=== PATIENT | female | born 1950 | race Caucasian/White ===

== ENCOUNTER 2020-04-15 12:19 | Inpatient (IN) | payer MEDICARE, OTHER ==
[2020-04-15] MEDS ORDERED: SODIUM CHLORIDE 0.9% 1,000 ML IV STA (12:37)
[2020-04-15] MEDS ORDERED: SODIUM CHLORIDE 0.9% 500 ML 500 ML IV STA (12:37)
[2020-04-15] MEDS ORDERED: ONDANSETRON 4 MG/2 ML VIAL IVP STA (12:37)
[2020-04-15] MEDS ORDERED: PROMETHAZINE INJ 25 MG in SODIUM CHLORIDE 0.9% 50 ML IVPB STA (12:54)
[2020-04-15] MEDS ORDERED: ACETAMINOPHEN TAB 500 MG TAB PO STA (12:56)
[2020-04-15] MEDS ORDERED: ALBUTEROL HFA INHALER INHALATION STA (13:00)
--- NOTE | 2020-04-15 13:00 | ED ---
Nausea/Vomiting/Diarrhea HPI - General Chief complaint: Nausea/Vomiting/Diarrhea Stated complaint: nausea Time Seen by Provider: 04/15/20 12:20 Source: patient, EMS, RN notes reviewed Mode of arrival: EMS Limitations: no limitations - History of Present Illness Initial comments: This is a 70-year-old female history of hypertension and who states she was diagnosed with covid 19 4 days ago at [facility] in [facility] who states she's had persistent intractable cough and started developing nausea and vomiting with at least 10 episodes of vomiting since early this morning. She does feels weak somewhat lightheaded. No diarrhea reported. She does have white foamy phlegm she was found have a fever upon arrival here she does states she's had fevers chills and sweats. No chest pain no other complaints or modifying factors other she states she's had decreased oral intake recently. MD complaint: nausea, vomiting, other - Related Data Allergies Allergy/AdvReac Type Severity Reaction Status Date / Time Penicillins Allergy Swelling Verified 04/15/20 12:41 Review of Systems ROS Statement: Those systems with pertinent positive or pertinent negative responses have been documented in the HPI. ROS Other: All systems not noted in ROS Statement are negative. Past Medical History Past Medical History: Hypertension, Thyroid Disorder History of Any Multi-Drug Resistant Organisms: None Reported Past Surgical History: No Surgical Hx Reported Past Psychological History: No Psychological Hx Reported Smoking Status: Never smoker Past Alcohol Use History: None Reported Past Drug Use History: None Reported General Exam - General Exam Comments Initial Comments: Is a well-developed well-nourished awake alert oriented 3 female Limitations: no limitations General appearance: alert, in no apparent distress Head exam: Present: atraumatic, normocephalic, normal inspection Eye exam: Present: normal appearance, PERRL, EOMI. Absent: scleral icterus, conjunctival injection, periorbital swelling ENT exam: Present: mucous membranes dry Neck exam: Present: normal inspection, full ROM, other (No stridor JVD or bruits). Absent: tenderness, meningismus, lymphadenopathy Respiratory exam: Present: rhonchi (Bibasilar rhonchi), decreased breath sounds. Absent: respiratory distress, wheezes, rales, stridor Cardiovascular Exam: Present: regular rate, normal rhythm, normal heart sounds. Absent: systolic murmur, diastolic murmur, rubs, gallop, clicks GI/Abdominal exam: Present: soft, normal bowel sounds. Absent: distended, tenderness, guarding, rebound, rigid, bruit, pulsatile mass Extremities exam: Present: normal inspection, full ROM, normal capillary refill. Absent: tenderness, pedal edema, joint swelling, calf tenderness Back exam: Present: normal inspection Neurological exam: Present: alert, oriented X3, CN II-XII intact Psychiatric exam: Present: normal affect, normal mood Skin exam: Present: warm, dry, intact, normal color. Absent: rash Course Vital Signs 04/15/20 04/15/20 12:41 14:34 Temperature 103.2 F H 102.3 F H Pulse Rate 74 72 Respiratory 20 18 Rate Blood Pressure 163/92 141/91 O2 Sat by Pulse 94 L 97 Oximetry Medical Decision Making - Medical Decision Making I did reevaluate patient on several occasions she still has some traces of nausea her breathing somewhat improved after the albuterol treatment. She did demonstrate a fever with chills and sweats cough with shortness of breath and likely bronchospasm. Patient was reported to be covid positive by nasal swab at [facility]'s records are not in her possession at this time that we do have some of the records. Patient will be admitted I did discuss the case with Dr. Duncan - Lab Data Result diagrams: 04/15/20 12:54 04/15/20 12:54 Lab Results 04/15/20 04/15/20 04/15/20 Range/Units 12:54 12:54 12:54 WBC 5.7 (3.8-10.6) k/uL RBC 4.49 (3.80-5.40) m/uL Hgb 13.1 (11.4-16.0) gm/dL Hct 40.2 (34.0-46.0) % MCV 89.6 (80.0-100.0) fL MCH 29.1 (25.0-35.0) pg MCHC 32.5 (31.0-37.0) g/dL RDW 13.0 (11.5-15.5) % Plt Count 167 (150-450) k/uL Neutrophils % 70 % Lymphocytes % 15 % Monocytes % 10 % Eosinophils % 1 % Basophils % 2 % Neutrophils # 4.0 (1.3-7.7) k/uL Lymphocytes # 0.9 L (1.0-4.8) k/uL Monocytes # 0.6 (0-1.0) k/uL Eosinophils # 0.0 (0-0.7) k/uL Basophils # 0.1 (0-0.2) k/uL D-Dimer 0.59 (<0.60) mg/L FEU Sodium 137 (137-145) mmol/L Potassium 3.7 (3.5-5.1) mmol/L Chloride 107 (98-107) mmol/L Carbon Dioxide 24 (22-30) mmol/L Anion Gap 6 mmol/L BUN 13 (7-17) mg/dL Creatinine 0.66 (0.52-1.04) mg/dL Est GFR (CKD-EPI)AfAm >90 (>60 ml/min/1.73 sqM) Est GFR (CKD-EPI)NonAf 90 (>60 ml/min/1.73 sqM) Glucose 97 (74-99) mg/dL Plasma Lactic Acid Cesar (0.7-2.0) mmol/L Calcium 7.8 L (8.4-10.2) mg/dL Magnesium 1.8 (1.6-2.3) mg/dL Total Bilirubin 0.5 (0.2-1.3) mg/dL AST 34 (14-36) U/L ALT 18 (4-34) U/L Alkaline Phosphatase 55 (38-126) U/L C-Reactive Protein 48.1 H (<10.0) mg/L Total Protein 5.6 L (6.3-8.2) g/dL Albumin 3.0 L (3.5-5.0) g/dL Lipase 33 (23-300) U/L 04/15/20 Range/Units 12:54 WBC (3.8-10.6) k/uL RBC (3.80-5.40) m/uL Hgb (11.4-16.0) gm/dL Hct (34.0-46.0) % MCV (80.0-100.0) fL MCH (25.0-35.0) pg MCHC (31.0-37.0) g/dL RDW (11.5-15.5) % Plt Count (150-450) k/uL Neutrophils % % Lymphocytes % % Monocytes % % Eosinophils % % Basophils % % Neutrophils # (1.3-7.7) k/uL Lymphocytes # (1.0-4.8) k/uL Monocytes # (0-1.0) k/uL Eosinophils # (0-0.7) k/uL Basophils # (0-0.2) k/uL D-Dimer (<0.60) mg/L FEU Sodium (137-145) mmol/L Potassium (3.5-5.1) mmol/L Chloride (98-107) mmol/L Carbon Dioxide (22-30) mmol/L Anion Gap mmol/L BUN (7-17) mg/dL Creatinine (0.52-1.04) mg/dL Est GFR (CKD-EPI)AfAm (>60 ml/min/1.73 sqM) Est GFR (CKD-EPI)NonAf (>60 ml/min/1.73 sqM) Glucose (74-99) mg/dL Plasma Lactic Acid Cesar 1.5 (0.7-2.0) mmol/L Calcium (8.4-10.2) mg/dL Magnesium (1.6-2.3) mg/dL Total Bilirubin (0.2-1.3) mg/dL AST (14-36) U/L ALT (4-34) U/L Alkaline Phosphatase (38-126) U/L C-Reactive Protein (<10.0) mg/L Total Protein (6.3-8.2) g/dL Albumin (3.5-5.0) g/dL Lipase (23-300) U/L - EKG Data -: EKG Interpreted by Ut EKG shows normal: sinus rhythm, axis, intervals, QRS complexes, ST-T waves Rate: normal EKG Comments: Sinus rhythm of 73. Interval 134 QRS duration 82 daily since QTC 416/[address]-T wave changes - Radiology Data Radiology results: report reviewed (I did review the imaging and report is evidence of peripheral infiltrates on chest x-ray evidence of enteritis versus ileus on the KUB.), image reviewed Disposition Clinical Impression: Pneumonia, Febrile illness, acute, Intractable vomiting, Ileus Disposition: [facility] Condition: Fair Referrals: Leonor Garg MD [Primary Care Provider] - 1-2 days
[2020-04-15 13:03] LABS: Basophils # (A) 0.1 k/uL (0-0.2); Basophils % (A) 2 %; Eosinophils % (A) 1 %; HCT 40.2 % (34.0-46.0); HGB 13.1 gm/dL (11.4-16.0); Lymphocytes # (A) 0.9 k/uL (1.0-4.8); Lymphocytes % (A) 15 %; MCH 29.1 pg (25.0-35.0); MCHC 32.5 g/dL (31.0-37.0); MCV 89.6 fL (80.0-100.0); Mean Platelet Volume 8.5; Monocytes # (A) 0.6 k/uL (0-1.0); Monocytes % (A) 10 %; Neutrophils % (A) 70 %; Platelet Count 167 k/uL (150-450); RBC 4.49 m/uL (3.80-5.40); WBC 5.7 k/uL (3.8-10.6)
[2020-04-15 13:15] LABS: ALT 18 U/L (4-34); AST 34 U/L (14-36); African American GFR (CKD) >90 (>60 ml/min/1.73 sqM); Alkaline Phosphatase 55 U/L (38-126); Anion Gap 6 mmol/L; Blood Urea Nitrogen 13 mg/dL (7-17); C Reactive Protein 48.1 mg/L (<10.0); Calcium 7.8 mg/dL (8.4-10.2); Carbon Dioxide 24 mmol/L (22-30); Chloride 107 mmol/L (98-107); Glucose 97 mg/dL (74-99); Magnesium 1.8 mg/dL (1.6-2.3); Non-African American GFR(CKD) 90 (>60 ml/min/1.73 sqM); Potassium 3.7 mmol/L (3.5-5.1); Sodium 137 mmol/L (137-145); Total Bilirubin 0.5 mg/dL (0.2-1.3); Total Protein 5.6 g/dL (6.3-8.2)
--- NOTE | 2020-04-15 14:03 | XR ---
EXAMINATION TYPE: XR chest 2V DATE OF EXAM: 04/15/2020 COMPARISON: None INDICATION: Pain fever cough TECHNIQUE: Frontal and lateral views of the chest are obtained. FINDINGS: The heart size is normal. The pulmonary vasculature is normal. There are patchy infiltrates within the bilateral mid and lower lung field periphery. Infectious etio logy should be considered such as pneumonia. Consider atypical pneumonia.. IMPRESSION: 1. Patchy peripheral infiltrates. Consider atypical pneumonia within the differential. Follow-up is r ecommended.
--- NOTE | 2020-04-15 14:56 | XR ---
EXAMINATION TYPE: XR KUB portable DATE OF EXAM: 04/15/2020 COMPARISON: NONE HISTORY: 70-year-old female with pain FINDINGS: Supine imaging limited for assessment of free air. Patchy opacities in the visualized lower lungs. Th e air distended small bowel loop in the left mid abdomen without abnormal dilatation. Scattered colon ic air is also present. No significant stool burden. Bowel content largely obscures the renal shadows. Degenerated levoconvex curvature lower lumbar spine. IMPRESSION: Mildly prominent small bowel loop left midabdomen could represent a regional ileus or enteritis. No e vidence for bowel obstruction. Patchy infiltrates in the lungs redemonstrated.
[2020-04-15] MEDS ORDERED: cefTRIAXone IN SWFI 1,000 MG/10 ML SYRINGE IVP STA (15:15)
[2020-04-15] MEDS ORDERED: PNEUMONIA PROTOCOL UTILIZED 1 EACH MISC PO PRN (15:16)
[2020-04-15] MEDS ORDERED: AZITHROMYCIN 500 MG in SODIUM CHLORIDE 0.9% 250 ML IVPB STA (15:16)
[2020-04-15] MEDS ORDERED: ALBUTEROL NEBULIZED 2.5 MG/3 ML INHALATION PRN (15:16)
--- NOTE | 2020-04-15 15:20 | ED ---
Medical Decision Making - Lab Data Result diagrams: 04/15/20 12:54 04/15/20 12:54 Lab Results 04/15/20 04/15/20 04/15/20 Range/Units 12:54 12:54 12:54 WBC 5.7 (3.8-10.6) k/uL RBC 4.49 (3.80-5.40) m/uL Hgb 13.1 (11.4-16.0) gm/dL Hct 40.2 (34.0-46.0) % MCV 89.6 (80.0-100.0) fL MCH 29.1 (25.0-35.0) pg MCHC 32.5 (31.0-37.0) g/dL RDW 13.0 (11.5-15.5) % Plt Count 167 (150-450) k/uL Neutrophils % 70 % Lymphocytes % 15 % Monocytes % 10 % Eosinophils % 1 % Basophils % 2 % Neutrophils # 4.0 (1.3-7.7) k/uL Lymphocytes # 0.9 L (1.0-4.8) k/uL Monocytes # 0.6 (0-1.0) k/uL Eosinophils # 0.0 (0-0.7) k/uL Basophils # 0.1 (0-0.2) k/uL D-Dimer 0.59 (<0.60) mg/L FEU Sodium 137 (137-145) mmol/L Potassium 3.7 (3.5-5.1) mmol/L Chloride 107 (98-107) mmol/L Carbon Dioxide 24 (22-30) mmol/L Anion Gap 6 mmol/L BUN 13 (7-17) mg/dL Creatinine 0.66 (0.52-1.04) mg/dL Est GFR (CKD-EPI)AfAm >90 (>60 ml/min/1.73 sqM) Est GFR (CKD-EPI)NonAf 90 (>60 ml/min/1.73 sqM) Glucose 97 (74-99) mg/dL Plasma Lactic Acid Cesar (0.7-2.0) mmol/L Calcium 7.8 L (8.4-10.2) mg/dL Magnesium 1.8 (1.6-2.3) mg/dL Total Bilirubin 0.5 (0.2-1.3) mg/dL AST 34 (14-36) U/L ALT 18 (4-34) U/L Alkaline Phosphatase 55 (38-126) U/L C-Reactive Protein 48.1 H (<10.0) mg/L Total Protein 5.6 L (6.3-8.2) g/dL Albumin 3.0 L (3.5-5.0) g/dL Lipase 33 (23-300) U/L 04/15/ Range/Units 12:54 WBC (3.8-10.6) k/uL RBC (3.80-5.40) m/uL Hgb (11.4-16.0) gm/dL Hct (34.0-46.0) % MCV (80.0-100.0) fL MCH (25.0-35.0) pg MCHC (31.0-37.0) g/dL RDW (11.5-15.5) % Plt Count (150-450) k/uL Neutrophils % % Lymphocytes % % Monocytes % % Eosinophils % % Basophils % % Neutrophils # (1.3-7.7) k/uL Lymphocytes # (1.0-4.8) k/uL Monocytes # (0-1.0) k/uL Eosinophils # (0-0.7) k/uL Basophils # (0-0.2) k/uL D-Dimer (<0.60) mg/L FEU Sodium (137-145) mmol/L Potassium (3.5-5.1) mmol/L Chloride (98-107) mmol/L Carbon Dioxide (22-30) mmol/L Anion Gap mmol/L BUN (7-17) mg/dL Creatinine (0.52-1.04) mg/dL Est GFR (CKD-EPI)AfAm (>60 ml/min/1.73 sqM) Est GFR (CKD-EPI)NonAf (>60 ml/min/1.73 sqM) Glucose (74-99) mg/dL Plasma Lactic Acid Cesar 1.5 (0.7-2.0) mmol/L Calcium (8.4-10.2) mg/dL Magnesium (1.6-2.3) mg/dL Total Bilirubin (0.2-1.3) mg/dL AST (14-36) U/L ALT (4-34) U/L Alkaline Phosphatase (38-126) U/L C-Reactive Protein (<10.0) mg/L Total Protein (6.3-8.2) g/dL Albumin (3.5-5.0) g/dL Lipase (23-300) U/L Disposition Clinical Impression: Pneumonia, Febrile illness, acute, Intractable vomiting, Ileus, Bronchospasm, acute Disposition: ADMITTED IP TO THIS HOSP Condition: Fair Referrals: Leonor Garg MD [Primary Care Provider] - 1-2 days
[2020-04-15] MEDS ORDERED: ONDANSETRON 4 MG/2 ML VIAL IVP PRN (17:20)
--- NOTE | 2020-04-15 17:30 | P.HPIM ---
History of Present Illness H&P Date: 04/15/20 Chief Complaint: Nausea and vomiting This is a 7-year-old female with past medical history significant for essential hypertension who presented to the hospital with nausea and vomiting. Patient said that 2 weeks ago she went and got tested for Covid-[address] care af ter being exposed to a positive patient. A week after she got report from the urgent care that her test was positive. Patient reported that she was feeling fairly well until 2 or 3 days ago when she started having worsening nausea and poor by mouth intake. Last night she said that she vomited so many times and was unable to keep anything down all day. She denies any abdominal pain. No diarrhea. No blood in her vomit. No fevers or chills. No cough. No chest pain. Patient said that she was getting short of breath only after she vomited so many times. She is currently comfortable. She decided to come to the emergency room for evaluation. In the ER, she was found to have a high-grade fever. Lab work was mostly within acceptable range. Chest x-ray showed multilobar pneumonia. Patient is currently admitted to the hospital for further management. There is no evidence of hypoxia otherwise. No other family members ill or diagnosed with Covid Review of Systems Review of system: 14 points review of systems were obtained and were negative except to what were mentioned in the HPI. Past Medical History Past Medical History: Hypertension, Thyroid Disorder History of Any Multi-Drug Resistant Organisms: None Reported Past Surgical History: No Surgical Hx Reported Past Psychological History: No Psychological Hx Reported Smoking Status: Never smoker Past Alcohol Use History: None Reported Past Drug Use History: None Reported Medications and Allergies Allergies Allergy/AdvReac Type Severity Reaction Status Date / Time Penicillins Allergy Swelling Verified 04/15/20 12:41 Physical Exam Vitals: Vital Signs Temp Pulse Resp BP Pulse Ox 04/15/20 16:18 98.6 F 66 18 116/79 97 04/15/20 14:34 102.3 F H 72 18 141/91 97 04/15/20 12:41 103.2 F H 74 20 163/92 94 L Intake and Output 04/15/20 04/15/20 04/15/20 06:59 14:59 22:59 Other: Weight 79.832 kg General: The patient is awake and alert, in no distress Eye: there is normal conjunctiva bilaterally. Neck: The neck is supple, there is no JVD. Cardiovascular: Normal S1-S2, no S3-S4, no murmurs. Respiratory: Lungs clear to auscultation bilaterally Gastrointestinal: Abdomen is soft, nontender Musculoskeletal: There is no pedal edema. Neurological:. Speech is normal. Skin: Skin is warm and dry Results CBC & Chem 7: 04/15/20 12:54 04/15/20 12:54 Labs: Abnormal Lab Results - Last 24 Hours (Table) 04/15/20 04/15/20 Range/Units 12:54 12:54 Lymphocytes # 0.9 L (1.0-4.8) k/uL Calcium 7.8 L (8.4-10.2) mg/dL C-Reactive Protein 48.1 H (<10.0) mg/L Total Protein 5.6 L (6.3-8.2) g/dL Albumin 3.0 L (3.5-5.0) g/dL Assessment and Plan Assessment: 1. Suspected ileus with no evidence of small bowel obstruction on abdominal x- ray. Abdominal exam is benign. Continue nothing by mouth for now. Repeat abdominal x-ray in the morning. 2. COVID-19 positive test 2 weeks ago at an outside urgent care per patient report. Repeat test in the ER done and pending. D-dimer normal. CRP slightly elevated. 3. A typical pneumonia: With multiple patchy infiltrate noted on chest x-ray. The patient denies any shortness of breath or cough. May be secondary to COVID versus bacterial infection. Continue antibiotic with ceftriaxone and azithromycin. Consult infectious disease for further evaluation. 4. High-grade fever on presentation of 103.2: No other SIRS criteria. Blood culture sent and pending 5. DVT prophylaxis with subcu heparin Today, I reviewed her medication list and lab work results. Continue IV fluid hydration with normal saline at 1:30 mL per hour. Zofran as needed for nausea. Wean off O2 as tolerated for O2 sats greater than 90%. Repeat lab work in the morning. Continue supportive care.
[2020-04-15] MEDS: SODIUM CHLORIDE 0.9% 1,000 ML IV SCH ×3 (18:22→23:39)
[2020-04-15] MEDS: HEPARIN SODIUM,PORCINE 5,000 UNIT/ML 1 ML VIAL SQ SCH (23:38)
[2020-04-16] MEDS: ACETAMINOPHEN TAB 325 MG TAB PO PRN ×2 (08:26→20:02)
[2020-04-16] MEDS: PANTOPRAZOLE 40 MG/10 ML VIAL IVP SCH (08:26)
[2020-04-16] MEDS: HEPARIN SODIUM,PORCINE 5,000 UNIT/ML 1 ML VIAL SQ SCH ×2 (08:26→15:03)
--- NOTE | 2020-04-16 12:00 | XR ---
EXAMINATION TYPE: XR abdomen 1V DATE OF EXAM: 04/16/2020 COMPARISON: 04/15/2020 INDICATION: Nausea TECHNIQUE: Single view abdomen supine view FINDINGS: There is a nonspecific bowel gas pattern present. There is within the colon. Some scattered small bow el air appears to be present. Previous dilated small bowel loops are not evident. Psoas margins are normal. No organomegaly is present. IMPRESSION: 1. Nonspecific bowel gas pattern. Prominence of air-filled small bowel loops are diminishing over the interval.
--- NOTE | 2020-04-16 12:01 | XR ---
EXAMINATION TYPE: XR chest 1V portable DATE OF EXAM: 04/16/2020 COMPARISON: Prior chest x-ray dated 04/15/2020 HISTORY: Cough TECHNIQUE: Single frontal view of the chest is obtained. FINDINGS: Lung volumes are low and the patient is rotated, technique is apical lordotic. Heart size is stable. Patchy density persists within the lungs. No evident pneumothorax or pleural effusion. Bon es are stable. Interstitium is increased. IMPRESSION: Findings are similar to prior exam. Difficult to exclude acute pneumonia superimposed on chronic interstitial disease.
[2020-04-16 13:09] LABS: Basophils % (A) 1 %; Eosinophils # (A) 0.1 k/uL (0-0.7); Eosinophils % (A) 1 %; HCT 37.7 % (34.0-46.0); HGB 12.1 gm/dL (11.4-16.0); Lymphocytes # (A) 1.2 k/uL (1.0-4.8); Lymphocytes % (A) 23 %; MCH 29.6 pg (25.0-35.0); MCHC 32.1 g/dL (31.0-37.0); MCV 92.2 fL (80.0-100.0); Mean Platelet Volume 8.6; Monocytes # (A) 0.5 k/uL (0-1.0); Monocytes % (A) 9 %; Neutrophils # (A) 3.4 k/uL (1.3-7.7); Neutrophils % (A) 63 %; Platelet Count 177 k/uL (150-450); RBC 4.09 m/uL (3.80-5.40); RDW 13.2 % (11.5-15.5); WBC 5.5 k/uL (3.8-10.6)
[2020-04-16 13:14] LABS: African American GFR (CKD) >90 (>60 ml/min/1.73 sqM); Anion Gap 6 mmol/L; Blood Urea Nitrogen 12 mg/dL (7-17); Calcium 7.4 mg/dL (8.4-10.2); Carbon Dioxide 23 mmol/L (22-30); Chloride 110 mmol/L (98-107); Glucose 80 mg/dL (74-99); Non-African American GFR(CKD) >90 (>60 ml/min/1.73 sqM); Potassium 3.5 mmol/L (3.5-5.1); Sodium 139 mmol/L (137-145)
[2020-04-16] MEDS: LEVOFLOXACIN 750 MG TAB PO SCH (15:03)
[2020-04-16] MEDS: SODIUM CHLORIDE 0.9% 1,000 ML IV SCH (15:03)
[2020-04-16] MEDS ORDERED: AZITHROMYCIN 500 MG TAB PO SCH (16:00)
--- NOTE | 2020-04-16 17:04 | P.PN ---
Subjective Progress Note Date: 04/16/20 Patient is doing a lot better today. Nausea resolved. She was started on clear liquid diet with no difficulty. She denies any abdominal pain. Objective - Vital Signs Vital signs: Vital Signs Temp 99.7 F H 04/16/20 14:59 Pulse 105 H 04/16/20 14:59 Resp 16 04/16/20 14:59 BP 138/81 04/16/20 14:59 Pulse Ox 94 L 04/16/20 14:59 Intake & Output 04/15/20 04/16/20 04/16/20 18:59 06:59 18:59 Intake Total 1959 Balance 1959 Weight 79.832 kg Intake: Intake, IV Titration 1760 Amount Sodium Chloride 0.9% 1, 1760 000 ml @ 130 mls/hr IV . [id number] [facility] Rx#:[id number] Oral 200 Other: # Voids 3 3 - Exam General: The patient is awake and alert, in no distress Eye: there is normal conjunctiva bilaterally. Neck: The neck is supple, there is no JVD. Cardiovascular: Normal S1-S2, no S3-S4, no murmurs. Respiratory: Lungs clear to auscultation bilaterally Gastrointestinal: Abdomen is soft, nontender Musculoskeletal: There is no pedal edema. Neurological:. Speech is normal. Skin: Skin is warm and dry - Labs CBC & Chem 7: 04/16/20 12:31 04/16/20 12:31 Labs: Abnormal Lab Results - Last 24 Hours (Table) 04/15/20 04/16/20 Range/Units 17:24 12:31 Chloride 110 H (98-107) mmol/L Calcium 7.4 L (8.4-10.2) mg/dL Procalcitonin 0.14 H (0.02-0.09) ng/mL Microbiology - Last 24 Hours (Table) 04/15/20 12:54 Blood Culture - Preliminary Blood No Growth after 24 hours Assessment and Plan Assessment: This is a 70-year-old female with past medical history noted below who was diagnosed with COVID-19 2 weeks ago at an outside urgent care and was doing fairly well up until couple of days ago when she started having nausea and vomiting and presented to our emergency room for further evaluation. She is currently admitted to the hospital for further management of her medical problems noted below. 1. Suspected ileus with no evidence of small bowel obstruction on abdominal x- ray. Abdominal exam is benign. Improved significantly with conservative management. Repeat x-ray on 04/16 showed improvement. Patient is able to tolerate clear liquid with no difficulty. Advance diet as tolerated. 2. COVID-19 positive test 2 weeks ago at an outside urgent care per patient report. Repeat test in the ER done and pending. D-dimer normal. CRP slightly elevated. 3. A typical pneumonia: With multiple patchy infiltrate noted on chest x-ray. The patient denies any shortness of breath or cough. May be secondary to COVID versus bacterial infection. Continue antibiotic with ceftriaxone and azithromycin. Consulted infectious disease for further evaluation. 4. High-grade fever on presentation of 103.2: No other SIRS criteria. Blood culture negative to date 5. DVT prophylaxis with subcu heparin Today, I reviewed her medication list and lab work results. Zofran as needed for nausea. Wean off O2 as tolerated for O2 sats greater than 90%. Repeat lab work in the morning. Continue supportive care. Anticipate discharge home within the next day or 2
[2020-04-16] MEDS: ALBUTEROL HFA INHALER INHALATION PRN (21:16)
--- NOTE | 2020-04-16 22:41 | P.CONS ---
History of Present Illness - Reason for Consult Consult date: 04/16/20 Covid 19 pneumonia Requesting physician: Kulwinder Osborne - Chief Complaint Vomiting x 3 days - History of Present Illness Patient is 70-year-old female with past medical history significant for hypertension apparently get exposed to a patient with covid 19 patient did went to urgent care and apparently the patient got tested for it which came back positive patient was doing okay until 2-3 days ago when the patient having intractable vomiting patient said she was unable to keep anything by mouth and has been throwing up multiple times the patient denies having any abdominal pain. Denies having any diarrhea or any constipation. Denies having any chest pain patient when she was short of breath from all the vomiting that she was having but no significant cough or sputum production with the symptoms the patient presented to [facility] ER the patient was evaluated by the ER physician on arrival to the ER the patient did have a fever of 103F the patient was tachycardic patient did have a normal white count did have mild lymphopenia though it has resolved as of this morning, patient d-dimer was normal lactic acid was normal CRP was mildly elevated 48.1 however Percocet was also elevated 0.14 and the patient did have normal liver enzymes, patient did have a chest x- ray did show patchy peripheral infiltrates correlate for atypical pneumonia within the differential chest x-ray this morning which is finding a similar prior exam patient did have nasal pharyngeal swab which is currently pending patient has been started on Rocephin and azithromycin facility was consulted for further management of antibiotic therapy Review of Systems Positive point has been mentioned in the HPI rest of the systems are negative Past Medical History Past Medical History: Hypertension, Thyroid Disorder History of Any Multi-Drug Resistant Organisms: None Reported Past Surgical History: No Surgical Hx Reported Past Anesthesia/Blood Transfusion Reactions: No Reported Reaction Past Psychological History: No Psychological Hx Reported Smoking Status: Never smoker Past Alcohol Use History: None Reported Past Drug Use History: None Reported - Past Family History Father Family Medical History: No Reported History Medications and Allergies Home Medications Medication Instructions Recorded Confirmed Type Cetirizine HCl 10 mg PO BID 04/15/20 04/15/20 History Famotidine 20 mg PO BID 04/15/20 04/15/20 History Levothyroxine Sodium [Synthroid] 125 mg PO QAM 04/15/20 04/15/20 History NIFEdipine [NIFEdipine ER] 30 mg PO DAILY 04/15/20 04/15/20 History Tolterodine ER [Detrol LA] 4 mg PO DAILY 04/15/20 04/15/20 History Venlafaxine HCl [Effexor XR] 150 mg PO DAILY 04/15/20 04/15/20 History diphenhydrAMINE [Benadryl] 50 mg PO Q6H PRN 04/15/20 04/15/20 History methylPREDNISolone Dose Pack See Taper PO DAILY 04/15/20 04/15/20 History [Medrol Dose Pack] traZODone HCL [TraZODone HCl] 50 - 100 mg PO HS PRN 04/15/20 04/15/20 History Carvedilol [Coreg] 6.25 mg PO BID 04/16/20 04/16/20 History EPINEPHrine (Auto Inject) [Epipen] 0.3 mg IM ONCE PRN 04/16/20 04/16/20 History Montelukast Sodium [Singulair] 10 mg PO HS 04/16/20 04/16/20 History Allergies Allergy/AdvReac Type Severity Reaction Status Date / Time almond Allergy Anaphylaxis Verified 04/16/20 12:10 lisinopril Allergy Anaphylaxis Verified 04/16/20 12:10 Penicillins Allergy Swelling Verified 04/16/20 12:10 Physical Exam Vitals: Vital Signs Temp Pulse Pulse Resp BP BP Pulse Ox 04/16/20 10:21 94 L 04/16/20 10:20 99.3 F 86 L 04/16/20 07:00 102.0 F H 111 H 18 145/90 90 L 04/15/20 23:00 97.8 F 75 17 133/71 97 04/15/20 19:55 99.9 F H 69 18 136/86 99 04/15/20 18:14 16 04/15/20 16:55 98.4 F 68 18 134/86 98 04/15/20 16:18 98.6 F 66 18 116/79 97 04/15/20 14:34 102.3 F H 72 18 141/91 97 04/15/20 12:41 103.2 F H 74 20 163/92 94 L Intake and Output 04/15/20 04/16/20 04/16/20 22:59 06:59 14:59 Intake Total 460 1500 Balance 460 1500 Intake: Intake, IV Titration 260 1500 Amount Sodium Chloride 0.9% 1, 260 1500 000 ml @ 130 mls/hr IV . Q7H42M [facility] Rx#:[id number] Oral 200 0 Other: # Voids 1 3 Weight 79.832 kg GENERAL DESCRIPTION: An elderly female lying in bed, no distress. No tachypnea or accessory muscle of respiration use. HEENT: Shows Pallor , no scleral icterus. Oral mucous membrane is dry. No pharyngeal erythema or thrush NECK: Trachea central, no thyromegaly. LUNGS: Unlabored breathing. Decreased present at the base. No wheeze or crackle. HEART: S1, S2, regular rate and rhythm. No loud murmur ABDOMEN: Soft, no tenderness , guarding or rigidity, no organomegaly EXTREMITIES: No edema of feet. SKIN: No rash, no masses palpable. NEUROLOGICAL: The patient is awake, alert, oriented x3, mood and affect normal. Results CBC & Chem 7: 04/16/20 12:31 04/16/20 12:31 Labs: Abnormal Lab Results - Last 24 Hours (Table) 04/15/20 04/15/20 04/15/20 Range/Units 12:54 12:54 17:24 Lymphocytes # 0.9 L (1.0-4.8) k/uL Calcium 7.8 L (8.4-10.2) mg/dL C-Reactive Protein 48.1 H (<10.0) mg/L Total Protein 5.6 L (6.3-8.2) g/dL Albumin 3.0 L (3.5-5.0) g/dL Procalcitonin 0.14 H (0.02-0.09) ng/mL Assessment and Plan Assessment: 1-patient presented to the hospital with intractable vomiting unable to keep anything down and around to the the patient was noticed to be febrile and tachycardic chest x-ray with multifocal infiltrate however the patient did have a normal white count mild lymphopenia the subsequent resolved d-dimer is negative liver enzymes are normal did have elevated CRP however procalcitonin is also elevated with a question of possible atypical bacterial pneumonia underlying viral pneumonia is not entirely excluded (1) Febrile illness, acute Current Visit: Yes Status: Acute Code(s): R50.9 - FEVER, UNSPECIFIED SNOMED Code(s): 936305131 (2) Pneumonia Current Visit: Yes Status: Acute Code(s): J18.9 - PNEUMONIA, UNSPECIFIED ORGANISM SNOMED Code(s): 033696496 Plan: 1- we will wait for the repeat nasopharyngeal swab for covid 19 2-check urine for Legionella antigen 3- continue with Rocephin however switch Zithromax to Levaquin We will follow on clinical condition and cultures to further adjust medication if needed Thank you for this consultation will follow this patient with you Time with Patient: Greater than 30
[2020-04-16] MEDS: DEXAMETHASONE SOD PHOSPHATE 10 MG/ML 1 ML VIAL PO SCH (23:54)
[2020-04-16] MEDS: ENOXAPARIN 40 MG/0.4 ML SYRINGE SQ SCH (23:54)
[2020-04-16] MEDS ORDERED: DEXAMETHASONE SOD PHOSPHATE 10 MG/ML 1 ML VIAL IV ONE (23:54)
--- NOTE | 2020-04-17 07:43 | XR ---
EXAMINATION TYPE: XR chest 1V portable DATE OF EXAM: 04/17/2020 CLINICAL HISTORY: Pneumonia TECHNIQUE: Upright portable view of the chest obtained COMPARISON: 04/16/2020 FINDINGS: Low lung volumes. Lordotic positioning. Interstitial coarsening. Patchy densities are incr eased versus 04/16/2020 comparison. Cardiac mediastinal silhouette unchanged. Small bilateral pleural effusions. No pneumothorax. IMPRESSION: Increased patchy airspace opacities versus 04/16/2020, and small bilateral pleural effusio ns.
[2020-04-17 08:19] LABS: Basophils % (A) 0 %; Eosinophils % (A) 0 %; HCT 40.2 % (34.0-46.0); HGB 13.1 gm/dL (11.4-16.0); Lymphocytes # (A) 0.5 k/uL (1.0-4.8); Lymphocytes % (A) 13 %; MCH 29.4 pg (25.0-35.0); MCHC 32.6 g/dL (31.0-37.0); MCV 90.4 fL (80.0-100.0); Mean Platelet Volume 8.4; Monocytes # (A) 0.1 k/uL (0-1.0); Monocytes % (A) 3 %; Neutrophils # (A) 3.3 k/uL (1.3-7.7); Neutrophils % (A) 81 %; Platelet Count 185 k/uL (150-450); RBC 4.44 m/uL (3.80-5.40); WBC 4.1 k/uL (3.8-10.6)
[2020-04-17 08:20] LABS: ALT 24 U/L (4-34); AST 42 U/L (14-36); African American GFR (CKD) >90 (>60 ml/min/1.73 sqM); Albumin 2.8 g/dL (3.5-5.0); Alkaline Phosphatase 52 U/L (38-126); Anion Gap 6 mmol/L; Blood Urea Nitrogen 10 mg/dL (7-17); Carbon Dioxide 25 mmol/L (22-30); Chloride 107 mmol/L (98-107); Glucose 142 mg/dL (74-99); LDH 1004 U/L (313-618); Non-African American GFR(CKD) >90 (>60 ml/min/1.73 sqM); Potassium 3.6 mmol/L (3.5-5.1); Sodium 138 mmol/L (137-145); Total Bilirubin 0.5 mg/dL (0.2-1.3); Total Protein 5.6 g/dL (6.3-8.2)
[2020-04-17] MEDS: ENOXAPARIN 40 MG/0.4 ML SYRINGE SQ SCH (08:21)
[2020-04-17] MEDS ORDERED: DEXAMETHASONE SOD PHOSPHATE 10 MG/ML 1 ML VIAL IV ONE (08:21)
[2020-04-17] MEDS: DEXAMETHASONE SOD PHOSPHATE 10 MG/ML 1 ML VIAL PO SCH (08:21)
[2020-04-17] MEDS: PANTOPRAZOLE 40 MG/10 ML VIAL IVP SCH (08:21)
[2020-04-17] MEDS: ZINC SULFATE 220 MG CAP PO SCH (08:22)
[2020-04-17 08:44] LABS: C Reactive Protein 60.1 mg/L (<10.0)
[2020-04-17] MEDS: ALBUTEROL HFA INHALER INHALATION PRN ×2 (09:30→20:48)
[2020-04-17] MEDS: LEVOFLOXACIN 750 MG TAB PO SCH (13:59)
--- NOTE | 2020-04-17 14:30 | P.PN ---
Subjective Progress Note Date: 04/17/20 Patient is doing well today. Her nausea and vomiting resolved. She is tolerating diet with no difficulty. She denies any shortness of breath or cough. Chest x-ray is worse compared to yesterday. She is still hypoxic with O2 sat dropping to 85% on room air. Objective - Vital Signs Vital signs: Vital Signs Temp 98.1 F 04/17/20 07:00 Pulse 69 04/17/20 07:00 Resp 16 04/17/20 07:00 BP 157/97 04/17/20 07:00 Pulse Ox 94 L 04/17/20 07:00 Intake & Output 04/16/20 04/17/20 04/17/20 18:59 06:59 18:59 Intake Total 80 200 Output Total 100 400 Balance -100 -320 200 Intake: Intake, IV Titration 80 Amount Sodium Chloride 0.9% 1, 80 000 ml @ 130 mls/hr IV . Q7H42M [facility] Rx#:[id number] Oral 200 Output: Urine 400 Emesis 100 Other: Voiding Method Toilet # Voids 3 1 - Exam General: The patient is awake and alert, in no distress Eye: there is normal conjunctiva bilaterally. Neck: The neck is supple, there is no JVD. Cardiovascular: Normal S1-S2, no S3-S4, no murmurs. Respiratory: Lungs clear to auscultation bilaterally Gastrointestinal: Abdomen is soft, nontender Musculoskeletal: There is no pedal edema. Neurological:. Speech is normal. Skin: Skin is warm and dry - Labs CBC & Chem 7: 04/17/20 07:39 04/17/20 07:39 Labs: Abnormal Lab Results - Last 24 Hours (Table) 04/15/20 04/17/20 04/17/20 Range/Units 18:00 07:39 07:39 Lymphocytes # 0.5 L (1.0-4.8) k/uL Glucose 142 H (74-99) mg/dL Calcium 8.0 L (8.4-10.2) mg/dL AST 42 H (14-36) U/L Lactate Dehydrogenase 1004 H (313-618) U/L C-Reactive Protein 60.1 H (<10.0) mg/L Total Protein 5.6 L (6.3-8.2) g/dL Albumin 2.8 L (3.5-5.0) g/dL Coronavirus (PCR) Detected H (Not Detected) Microbiology - Last 24 Hours (Table) 04/15/20 12:54 Blood Culture - Preliminary Blood No Growth after 24 hours Assessment and Plan Assessment: This is a 70-year-old female with past medical history noted below who was diagnosed with COVID-19 2 weeks ago at an outside urgent care and was doing fairly well up until couple of days ago when she started having nausea and vomiting and presented to our emergency room for further evaluation. She is currently admitted to the hospital for further management of her medical problems noted below. 1. Suspected ileus/enteritis with no evidence of small bowel obstruction on abdominal x-ray. Abdominal exam is benign. Improved significantly with conservative management. Repeat x-ray on 04/16 showed improvement. Patient is able to tolerate diet with no difficulty 2. COVID-19 positive test 2 weeks ago at an outside urgent care per patient report. Repeat test in the ER done and also positive. D-dimer normal. CRP slightly elevated. 3. A typical pneumonia: With multiple patchy infiltrate noted on chest x-ray. The patient denies any shortness of breath or cough. Probably secondary to COVID versus bacterial infection. Started on antibiotic with ceftriaxone and azithromycin. Consulted infectious disease for further evaluation. Switch antibiotic to Levaquin 4. High-grade fever on presentation of 103.2: No other SIRS criteria. Blood culture negative to date 5. Acute hypoxic respiratory failure on 2 L of oxygen by nasal cannula 6. DVT prophylaxis with subcu heparin Today, I reviewed her medication list and lab work results. I will consult pulmonology to be on the case with concerns about worsening chest x-ray. Pat ient appeared stable clinically. Wean off O2 as tolerated for O2 sats greater than 90%. Repeat lab work in the morning. Continue supportive care.
--- NOTE | 2020-04-17 14:35 | P.CNPUL ---
History of Present Illness Consult date: 04/17/20 Reason for consult: pneumonia Chief complaint: Nausea, vomiting, and diarrhea. History of present illness: This is a 70-year-old female with history of hypothyroidism, hypertension, patient was recently exposed to someone with covid 19 at her [facility]. Patient presented to the hospital on 04/15/20, and she had basically multiple complaints including nausea, vomiting, diarrhea, and intermittent episodes of fever, and re cently she developed some cough and some shortness of breath. Her diagnosis was made 4 days prior to admission at [facility], however considering her symptoms are becoming worse, patient presented to the ER on 04/15/20, chest x-ray showed evidence of bilateral peripheral pneumonia a baseline, her repeat PCR came back positive for covid 19 patient was admitted placed on Decadron, she is also on Levaquin and Rocephin, her pro calcitonin is elevated. Patient was seen by infectious disease on consultation. However since her O2 requirement has been increasing steadily, she is now on 3 L nasal cannula with oxygen saturation in the range of 94%, this consult was initiated. Again patient has a multiple constitutional symptoms including fever, sweats, nausea vomiting, minimal diarrhea, cough, shortness of breath, headaches, denies any chest pain, denies any loss of taste or smell. She also had complaints of vague aches and pains and weakness Review of Systems Constitutional: Fever chills or aches and pains no weight loss. HEENT: Negative Pulmonary: Cough and shortness of breath GI: Nausea vomiting and minimal diarrhea. Cardiac: Negative neUrologic: Mostly headaches Genitourinary: Negative Hematologic: Negative Psychiatric: Negative Musculoskeletal: Mostly aches and pains Skin: Negative Endocrine: History of hypothyroidism denies any heat or cold intolerance. Past Medical History Past Medical History: Hypertension, Thyroid Disorder History of Any Multi-Drug Resistant Organisms: None Reported Past Surgical History: No Surgical Hx Reported Past Anesthesia/Blood Transfusion Reactions: No Reported Reaction Past Psychological History: No Psychological Hx Reported Smoking Status: Never smoker Past Alcohol Use History: None Reported Past Drug Use History: None Reported - Past Family History Father Family Medical History: No Reported History Medications and Allergies Home Medications Medication Instructions Recorded Confirmed Type Cetirizine HCl 10 mg PO BID 04/15/20 04/15/20 History Famotidine 20 mg PO BID 04/15/20 04/15/20 History Levothyroxine Sodium [Synthroid] 125 mg PO QAM 04/15/20 04/15/20 History NIFEdipine [NIFEdipine ER] 30 mg PO DAILY 04/15/20 04/15/20 History Tolterodine ER [Detrol LA] 4 mg PO DAILY 04/15/20 04/15/20 History Venlafaxine HCl [Effexor XR] 150 mg PO DAILY 04/15/20 04/15/20 History diphenhydrAMINE [Benadryl] 50 mg PO Q6H PRN 04/15/20 04/15/20 History methylPREDNISolone Dose Pack See Taper PO DAILY 04/15/20 04/15/20 History [Medrol Dose Pack] traZODone HCL [TraZODone HCl] 50 - 100 mg PO HS PRN 04/15/20 04/15/20 History Carvedilol [Coreg] 6.25 mg PO BID 04/16/20 04/16/20 History EPINEPHrine (Auto Inject) [Epipen] 0.3 mg IM ONCE PRN 04/16/20 04/16/20 History Montelukast Sodium [Singulair] 10 mg PO HS 04/16/20 04/16/20 History Allergies Allergy/AdvReac Type Severity Reaction Status Date / Time almond Allergy Anaphylaxis Verified 04/16/20 12:10 lisinopril Allergy Anaphylaxis Verified 04/16/20 12:10 Penicillins Allergy Swelling Verified 04/16/20 12:10 Physical Exam Vitals: Vital Signs Temp Pulse Resp BP Pulse Ox 04/17/20 07:00 98.1 F 69 16 157/97 94 L 04/17/20 04:00 17 04/16/20 23:55 99.6 F 74 17 164/85 94 L 04/16/20 20:45 99.5 F 04/16/20 19:30 103.0 F H 74 18 153/96 95 04/16/20 14:59 99.7 F H 105 H 16 138/81 94 L Intake and Output 04/16/20 04/17/20 04/17/20 22:59 06:59 14:59 Intake Total 80 200 Output Total 100 400 Balance -100 -320 200 Intake: Intake, IV Titration 80 Amount Sodium Chloride 0.9% 1, 80 000 ml @ 130 mls/hr IV . Q7H42M [facility] Rx#:[id number] Oral 200 Output: Urine 400 Emesis 100 Other: Voiding Method Toilet # Voids 1 1 Physical Exam: Revealed 70-year-old female in no distress. Head: Atraumatic, normocephalic. HEENT:[Neck is supple.] [No neck masses.] [No thyromegaly.] [No JVD.] Chest: [Symmetrical chest expansion, crackles at the bases bilaterally.] Cardiac Exam: [Normal S1 and S2, no S3 gallop, no murmur.] Abdomen: [Soft, nontender, no megaly, no rebound, no guarding, normal bowel sounds.] Extremities: [No clubbing, no edema, no cyanosis.] Neurological Exam: [No focal neurologic deficit.] Alert and oriented 3. Psychiatric: Normal mood, affect and normal mental status examination. Skin: No rashes. Musculoskeletal: No deformities and no limitation in range of motion Results - Laboratory Findings CBC and BMP: 04/17/20 07:39 04/17/20 07:39 PT/INR, D-dimer D-Dimer 0.59 mg/L FEU (<0.60) 04/15/20 12:54 Abnormal lab findings: Abnormal Labs 04/15/20 04/15/20 04/15/20 12:54 12:54 17:24 Lymphocytes # 0.9 L Chloride Glucose Calcium 7.8 L AST Lactate Dehydrogenase C-Reactive Protein 48.1 H Total Protein 5.6 L Albumin 3.0 L Procalcitonin 0.14 H Coronavirus (PCR) 04/15/20 04/16/20 04/17/20 18:00 12:31 07:39 Lymphocytes # 0.5 L Chloride 110 H Glucose Calcium 7.4 L AST Lactate Dehydrogenase C-Reactive Protein Total Protein Albumin Procalcitonin Coronavirus (PCR) Detected H 04/17/20 07:39 Lymphocytes # Chloride Glucose 142 H Calcium 8.0 L AST 42 H Lactate Dehydrogenase 1004 H C-Reactive Protein 60.1 H Total Protein 5.6 L Albumin 2.8 L Procalcitonin Coronavirus (PCR) - Diagnostic Findings Chest x-ray: image reviewed (As noted in HPI.) Assessment and Plan Assessment: Impression: Acute hypoxic respiratory failure secondary to covid 19 pneumonitis. With significant increase in inflammatory markers for covid 19 pneumonitis History of hypothyroidism. History of hypertension. Elevated pro calcitonin, underlying bacterial pneumonia is not entirely ruled out. Recommendation: Continue Decadron. Continue Protonix. Continue zinc. Continue Lovenox, dose may have to be adjusted based on the next d-dimer level. Titrate oxygen to keep O2 saturation above 90%. Continue to monitor inflammatory markers. Will follow. Time with Patient: Greater than 30
--- NOTE | 2020-04-17 18:11 | PN ---
PROGRESS NOTE DATE OF SERVICE: 04/17/2020 REASON FOR FOLLOWUP: Fever and pneumonia. INTERVAL HISTORY: The patient is currently afebrile. The patient is breathing more comfortably. The patient denies having any chest pain or shortness of breath. Minimal dry cough. No nausea, no vomiting. No abdominal pain or diarrhea. Feeling better compared to yesterday. PHYSICAL EXAMINATION: Blood pressure 185/100 with a pulse of 79, temperature 97.3. She is 95% on 2 L nasal cannula. General description is an elderly female up in the bed in no distress. RESPIRATORY SYSTEM: Unlabored breathing. A few fine crackles at the base bilaterally. No wheeze. HEART: S1, S2. Regular rate and rhythm. ABDOMEN: Soft. No tenderness. LABS/IMAGING: Hemoglobin 13.3, white count 4.1. D-dimer 0.43. ALT normalized. CRP 60.1. Procalcitonin is 0.14. Chest x-ray: increased patchy airspace opacity. DIAGNOSTIC IMPRESSION AND PLAN: Patient admitted to hospital with a fever with concern for possible COVID-19 pneumonia. However, that has been diagnosed 2 weeks ago and is out of the window for remdisivir, patient is currently being treated with Lovenox, Decadron and zinc and seems to have shown clinical improvement; to continue along with empiric Levaquin, as the patient's procalcitonin was elevated. Continue with supportive care. MMODL / IJN: [id number] / MTDJessica
[2020-04-17] MEDS: ACETAMINOPHEN TAB 325 MG TAB PO PRN (22:10)
[2020-04-17] MEDS ORDERED: hydrALAZINE HCL 25 MG TAB PO ONE (22:30)
[2020-04-17] MEDS: carvediloL 6.25 MG TAB PO SCH (22:37)
[2020-04-17] MEDS: NIFEdipine XL 30 MG TAB.ER.24 PO SCH (23:06)
[2020-04-18] MEDS ORDERED: hydrALAZINE HCL 25 MG TAB PO STA (02:53)
[2020-04-18] MEDS: ALBUTEROL HFA INHALER INHALATION PRN (07:44)
[2020-04-18 08:52] LABS: Basophils % (A) 0 %; Eosinophils % (A) 0 %; HCT 42.8 % (34.0-46.0); Lymphocytes # (A) 1.1 k/uL (1.0-4.8); Lymphocytes % (A) 10 %; MCH 29.6 pg (25.0-35.0); MCHC 32.8 g/dL (31.0-37.0); MCV 90.4 fL (80.0-100.0); Mean Platelet Volume 9.2; Monocytes # (A) 0.7 k/uL (0-1.0); Monocytes % (A) 6 %; Neutrophils # (A) 9.1 k/uL (1.3-7.7); Neutrophils % (A) 81 %; Platelet Count 242 k/uL (150-450); RBC 4.73 m/uL (3.80-5.40); WBC 11.3 k/uL (3.8-10.6)
[2020-04-18 08:58] LABS: African American GFR (CKD) >90 (>60 ml/min/1.73 sqM); Anion Gap 8 mmol/L; Blood Urea Nitrogen 18 mg/dL (7-17); Calcium 8.6 mg/dL (8.4-10.2); Carbon Dioxide 24 mmol/L (22-30); Chloride 107 mmol/L (98-107); Glucose 131 mg/dL (74-99); Non-African American GFR(CKD) 89 (>60 ml/min/1.73 sqM); Potassium 3.9 mmol/L (3.5-5.1); Sodium 139 mmol/L (137-145)
[2020-04-18] MEDS: PANTOPRAZOLE 40 MG TABLET PO SCH (08:59)
[2020-04-18] MEDS: NIFEdipine XL 30 MG TAB.ER.24 PO SCH (08:59)
[2020-04-18] MEDS: LEVOFLOXACIN 750 MG TAB PO SCH (08:59)
[2020-04-18] MEDS: ZINC SULFATE 220 MG CAP PO SCH (08:59)
[2020-04-18] MEDS: ENOXAPARIN 40 MG/0.4 ML SYRINGE SQ SCH (08:59)
[2020-04-18] MEDS: carvediloL 6.25 MG TAB PO SCH ×2 (08:59→17:21)
[2020-04-18] MEDS: DEXAMETHASONE SOD PHOSPHATE 10 MG/ML 1 ML VIAL PO SCH (09:00)
[2020-04-18] MEDS ORDERED: DEXAMETHASONE SOD PHOSPHATE 10 MG/ML 1 ML VIAL IV ONE (09:00)
--- NOTE | 2020-04-18 11:45 | P.PN ---
Subjective Progress Note Date: 04/18/20 Principal diagnosis: CoVID 19 pneumonitis This is a 70-year-old female with history of hypothyroidism, hypertension, patient was recently exposed to someone with covid 19 at her [employer]. Patient presented to the hospital on 04/15/20, and she had basically multiple complaints including nausea, vomiting, diarrhea, and intermittent episodes of fever, and recently she developed some cough and some shortness of breath. Her diagnosis was made 4 days prior to admission at [facility], however considering her symptoms are becoming worse, patient presented to the ER on 04/15/20, chest x-ray showed evidence of bilateral peripheral pneumonia a baseline, her repeat PCR came back positive for covid 19 patient was admitted placed on Decadron, she is also on Levaquin and Rocephin, her pro calcitonin is elevated. Patient was seen by infectious disease on consultation. However since her O2 requirement has been increasing steadily, she is now on 3 L nasal cannula with oxygen saturation in the range of 94%, this consult was initiated. Again patient has a multiple constitutional symptoms including fever, sweats, nausea vomiting, minimal diarrhea, cough, shortness of breath, headaches, denies any chest pain, denies any loss of taste or smell. She also had complaints of vague aches and pains and weakness. The patient is seen today 04/18/2020 in follow-up on the regular medical floor. She is currently resting comfortably in bed. Awake and alert in no acute distress. Breathing easier today as compared to yesterday. No significant nausea vomiting or diarrhea. Tolerating her diet. Blood culture reveals no growth to date. White count 11.3. Hemoglobin 14.0. Sodium 139. Potassium 3.9. Creatinine 0.69. Glucose 131. LDH 87. C-reactive protein 31. She daniel ins on Decadron 6 mg daily, Lovenox, zinc, Protonix and Levaquin. Objective - Vital Signs Vital signs: Vital Signs Temp 97.6 F 04/18/20 07:00 Pulse 72 04/18/20 07:00 Resp 17 04/18/20 07:00 BP 126/70 04/18/20 07:00 Pulse Ox 94 L 04/18/20 07:00 Intake & Output 04/17/20 04/18/20 04/18/20 18:59 06:59 18:59 Intake Total 200 580 Balance 200 580 Intake: Oral 200 580 Other: Voiding Method Toilet Toilet # Voids 2 2 - Exam GENERAL EXAM: Alert, very pleasant 75-year-old female patient, on 2 L nasal cannula with O2 saturation 94%, comfortable in no apparent distress. HEAD: Normocephalic. EYES: Normal reaction of pupils, equal size. NOSE: Clear with pink turbinates. THROAT: No erythema or exudates. NECK: No masses, no JVD. CHEST: No chest wall deformity. LUNGS: Equal air entry with few basilar crackles. CVS: S1 and S2 normal with no audible murmur, regular rhythm. ABDOMEN: No hepatosplenomegaly, normal bowel sounds, no guarding or rigidity. SPINE: No scoliosis or deformity SKIN: No rashes CENTRAL NERVOUS SYSTEM: No focal deficits, tone is normal in all 4 extremities. EXTREMITIES: There is no peripheral edema. No clubbing, no cyanosis. Peripheral pulses are intact. - Labs CBC & Chem 7: 04/18/20 07:53 04/18/20 07:53 Labs: Abnormal Lab Results - Last 24 Hours (Table) 04/18/20 04/18/20 04/18/20 Range/Units 07:53 07:53 07:53 WBC 11.3 H (3.8-10.6) k/uL Neutrophils # 9.1 H (1.3-7.7) k/uL BUN 18 H (7-17) mg/dL Glucose 131 H (74-99) mg/dL Lactate Dehydrogenase 811 H (313-618) U/L C-Reactive Protein 31.0 H (<10.0) mg/L Microbiology - Last 24 Hours (Table) 04/15/20 12:54 Blood Culture - Preliminary Blood No Growth after 48 hours Assessment and Plan Assessment: Acute hypoxic respiratory failure secondary to CoVID 19 pneumonitis Increased inflammatory markers secondary to above Hypothyroidism Hypertension Plan: The patient was seen and evaluated by Dr. Ross Inflammatory markers improving Remains on Decadron, zinc, Protonix, Lovenox, Levaquin Titrate down the FiO2 as tolerated Follow-up chest x-ray in a.m. We'll continue to follow I, the cosigning physician, performed a history & physical examination of the patient. Lungs sounds with basilar crackles. Maintaining good O2 saturations in the 90s on 2 L/m per nasal cannula. I discussed the assessment and plan of care with my nurse practitioner, Hina Little. I attest to the above note as dictated by her.
[2020-04-18] MEDS: VENLAFAXINE HCL ER 150 MG CAP PO SCH (15:08)
[2020-04-18] MEDS: LEVOTHYROXINE 125 MCG TAB PO SCH (15:08)
--- NOTE | 2020-04-18 16:52 | P.PN ---
Subjective Progress Note Date: 04/18/20 Patient is doing well today. Denies any shortness of breath, nausea, or vomiting. Objective - Vital Signs Vital signs: Vital Signs Temp 97.8 F 04/18/20 15:00 Pulse 74 04/18/20 15:00 Resp 16 04/18/20 15:00 BP 135/89 04/18/20 15:00 Pulse Ox 93 L 04/18/20 15:00 Intake & Output 04/17/20 04/18/20 04/18/20 18:59 06:59 18:59 Intake Total 200 580 Balance 200 580 Intake: Oral 200 580 Other: Voiding Method Toilet Toilet # Voids 2 2 - Exam General: The patient is awake and alert, in no distress Eye: there is normal conjunctiva bilaterally. Neck: The neck is supple, there is no JVD. Cardiovascular: Normal S1-S2, no S3-S4, no murmurs. Respiratory: Lungs clear to auscultation bilaterally Gastrointestinal: Abdomen is soft, nontender Musculoskeletal: There is no pedal edema. Neurological:. Speech is normal. Skin: Skin is warm and dry - Labs CBC & Chem 7: 04/18/20 07:53 04/18/20 07:53 Labs: Abnormal Lab Results - Last 24 Hours (Table) 04/18/20 04/18/20 04/18/20 Range/Units 07:53 07:53 07:53 WBC 11.3 H (3.8-10.6) k/uL Neutrophils # 9.1 H (1.3-7.7) k/uL BUN 18 H (7-17) mg/dL Glucose 131 H (74-99) mg/dL Lactate Dehydrogenase 811 H (313-618) U/L C-Reactive Protein 31.0 H (<10.0) mg/L Microbiology - Last 24 Hours (Table) 04/15/20 12:54 Blood Culture - Preliminary Blood No Growth after 72 hours Assessment and Plan Assessment: This is a 70-year-old female with past medical history noted below who was diagnosed with COVID-19 2 weeks ago at an outside urgent care and was doing fairly well up until couple of days ago when she started having nausea and vomiting and presented to our emergency room for further evaluation. She is currently admitted to the hospital for further management of her medical problems noted below. 1. Suspected ileus/enteritis with no evidence of small bowel obstruction on abdominal x-ray. Abdominal exam is benign. Improved significantly with conservative management. Repeat x-ray on 04/16 showed improvement. Patient is able to tolerate diet with no difficulty 2. COVID-19 positive test 2 weeks ago at an outside urgent care per patient report. Repeat test in the ER done and also positive. D-dimer normal. CRP slightly elevated. 3. A typical pneumonia: With multiple patchy infiltrate noted on chest x-ray. The patient denies any shortness of breath or cough. Probably secondary to COVID versus bacterial infection. Started on antibiotic with ceftriaxone and azithromycin. Now switched to Levaquin. Consulted infectious disease and pulmonology for further evaluation. 4. High-grade fever on presentation of 103.2: No other SIRS criteria. Blood culture negative to date 5. Acute hypoxic respiratory failure on 2 L of oxygen by nasal cannula. Wean off O2 as tolerated for O2 sat greater than 90%. 6. DVT prophylaxis with subcu heparin Today, I reviewed her medication list and lab work results. Appreciate real estate consultant's recommendations. Repeat x-ray in the morning.. Wean off O2 as tolerated for O2 sats greater than 90%. Repeat lab work in the morning. Continue supportive care. May require home oxygen. Anticipate discharge home tomorrow.
--- NOTE | 2020-04-18 16:59 | PN ---
PROGRESS NOTE DATE OF SERVICE: 04/18/2020 REASON FOR FOLLOWUP: Pneumonia. INTERVAL HISTORY: Patient is currently afebrile. The patient overall is feeling much better. The patient is breathing comfortably. The patient denies having any chest pain. Very minimal cough. No nausea, no vomiting. No abdominal pain or any diarrhea. PHYSICAL EXAMINATION: Blood pressure 126/70 with a pulse of 72, temperature 97.3. She is 94% on 1 L nasal cannula. General description is an elderly female, up in the chair in no distress. RESPIRATORY SYSTEM: Unlabored breathing, diffuse breath sounds at the base. HEART: S1, S2. Regular rate and rhythm. ABDOMEN: Soft, no tenderness. LABS: Hemoglobin is 14.3, white count 11.3, BUN of 18, creatinine 0.69. LDH is down to 811. CRP is down to 31. Urine for Legionella antigen is negative. No chest x-ray this morning. DIAGNOSTIC IMPRESSION AND PLAN: 1. Patient admitted to hospital with fever. This patient has been diagnosed with acute COVID-19 pneumonia about 2 weeks ago. The patient seemed to have shown overall clinical improvement on current therapy, which will be continued in the form of Levaquin, zinc, Lovenox and dexamethasone.. 2. If the patient has been off oxygen, may be able to go home on oral therapy to finish. Continue supportive care. MMODL / IJN: [id number] /
[2020-04-19] MEDS: LEVOTHYROXINE 125 MCG TAB PO SCH (06:10)
--- NOTE | 2020-04-19 07:39 | XR ---
EXAMINATION TYPE: XR chest 1V portable DATE OF EXAM: 04/19/2020 COMPARISON: Prior chest x-ray 04/17/2020 HISTORY: Covid pneumonia TECHNIQUE: Single frontal view of the chest is obtained. FINDINGS: There are interstitial densities present bilaterally. Lung volumes are improved. Some brent pheral patchy density persists. No evident pneumothorax or pleural effusion. Cardiomediastinal silhou ette, pulmonary vascularity and balbir not significantly changed. IMPRESSION: Improved aeration
[2020-04-19 07:45] VITALS: RESP 20
[2020-04-19] MEDS: ENOXAPARIN 40 MG/0.4 ML SYRINGE SQ SCH (08:03)
[2020-04-19] MEDS: NIFEdipine XL 30 MG TAB.ER.24 PO SCH (08:03)
[2020-04-19] MEDS: carvediloL 6.25 MG TAB PO SCH (08:03)
[2020-04-19] MEDS: VENLAFAXINE HCL ER 150 MG CAP PO SCH (08:03)
[2020-04-19] MEDS: PANTOPRAZOLE 40 MG TABLET PO SCH (08:03)
[2020-04-19] MEDS: ZINC SULFATE 220 MG CAP PO SCH (08:03)
[2020-04-19] MEDS: DEXAMETHASONE SOD PHOSPHATE 10 MG/ML 1 ML VIAL PO SCH (08:04)
[2020-04-19 08:21] VITALS: BP 147/87; PULSE 68; TEMP 99
--- NOTE | 2020-04-19 11:31 | P.PN ---
Subjective Progress Note Date: 04/19/20 Principal diagnosis: CoVID 19 pneumonitis This is a 70-year-old female with history of hypothyroidism, hypertension, patient was recently exposed to [facility] with covid [facility]. Patient presented to the hospital on 04/15/20, and she had basically multiple complaints including nausea, vomiting, diarrhea, and intermittent episodes of fever, and recently she developed some cough and some shortness of breath. Her diagnosis was made 4 days prior to admission at [facility], however considering her symptoms are becoming worse, patient presented to the ER on 04/15/20, chest x-ray showed evidence of bilateral peripheral pneumonia a baseline, her repeat PCR came back positive for covid 19 patient was admitted placed on Decadron, she is also on Levaquin and Rocephin, her pro calcitonin is elevated. Patient was seen by infectious disease on consultation. However since her O2 requirement has been increasing steadily, she is now on 3 L nasal cannula with oxygen saturation in the range of 94%, this consult was initiated. Again patient has a multiple constitutional symptoms including fever, sweats, nausea vomiting, minimal diarrhea, cough, shortness of breath, headaches, denies any chest pain, denies any loss of taste or smell. She also had complaints of vague aches and pains and weakness. The patient is seen today 04/18/2020 in follow-up on the regular medical floor. She is currently resting comfortably in bed. Awake and alert in no acute distress. Breathing easier today as compared to yesterday. No significant nausea vomiting or diarrhea. Tolerating her diet. Blood culture reveals no growth to date. White count 11.3. Hemoglobin 14.0. Sodium 139. Potassium 3.9. Creatinine 0.69. Glucose 131. LDH 87. C-reactive protein 31. She daniel ins on Decadron 6 mg daily, Lovenox, zinc, Protonix and Levaquin. The patient is seen today 04/19/2020 in follow-up on the regular medical floor. She remains awake and alert in no acute distress. No shortness of breath, cough or congestion. No fever, chills or night sweats. Chest x-ray shows improved aeration. Maintaining O2 saturation in low 90s on room air. Blood culture reveals no growth. Objective - Vital Signs Vital signs: Vital Signs Temp 99.0 F 04/19/20 07:00 Pulse 68 04/19/20 07:00 Resp 20 04/19/20 07:30 BP 147/87 04/19/20 07:00 Pulse Ox 93 L 04/19/20 07:00 Intake & Output 04/18/20 04/19/20 04/19/20 18:59 06:59 18:59 Intake Total 580 200 Balance 580 200 Intake: Oral 580 200 Other: Voiding Method Toilet Toilet Toilet # Voids 2 - Exam GENERAL EXAM: Alert, very pleasant 75-year-old female patient, on room air with O2 saturation 93%, comfortable in no apparent distress. HEAD: Normocephalic. EYES: Normal reaction of pupils, equal size. NOSE: Clear with pink turbinates. THROAT: No erythema or exudates. NECK: No masses, no JVD. CHEST: No chest wall deformity. LUNGS: Equal air entry with few basilar crackles. CVS: S1 and S2 normal with no audible murmur, regular rhythm. ABDOMEN: No hepatosplenomegaly, normal bowel sounds, no guarding or rigidity. SPINE: No scoliosis or deformity SKIN: No rashes CENTRAL NERVOUS SYSTEM: No focal deficits, tone is normal in all 4 extremities. EXTREMITIES: There is no peripheral edema. No clubbing, no cyanosis. Peripheral pulses are intact. - Labs CBC & Chem 7: 04/18/20 07:53 04/18/20 07:53 Labs: Microbiology - Last 24 Hours (Table) 04/15/20 12:54 Blood Culture - Preliminary Blood No Growth after 72 hours Assessment and Plan Assessment: Acute hypoxic respiratory failure secondary to CoVID 19 pneumonitis Increased inflammatory markers secondary to above Hypothyroidism Hypertension Plan: The patient was seen and evaluated by Dr. Ross Cleared for discharge from the pulmonary standpoint To remain in self quarantine Follow-up Covid test with her PCP in 10-14 days I, the cosigning physician, performed a history & physical examination of the patient. Lungs sounds with basilar crackles. Maintaining good O2 saturations in the 90s on room air. I discussed the assessment and plan of care with my nurse practitioner, Hina Little. I attest to the above note as dictated by her.
[2020-04-19] MEDS: LEVOFLOXACIN 750 MG TAB PO SCH (11:52)
[2020-04-19 12:52] LABS: Basophils # (A) 0.1 k/uL (0-0.2); Basophils % (A) 1 %; Eosinophils % (A) 1 %; HCT 37.3 % (34.0-46.0); HGB 12.5 gm/dL (11.4-16.0); Lymphocytes # (A) 1.6 k/uL (1.0-4.8); Lymphocytes % (A) 19 %; MCH 29.7 pg (25.0-35.0); MCHC 33.6 g/dL (31.0-37.0); MCV 88.4 fL (80.0-100.0); Mean Platelet Volume 8.5; Monocytes # (A) 0.7 k/uL (0-1.0); Monocytes % (A) 9 %; Neutrophils # (A) 5.7 k/uL (1.3-7.7); Neutrophils % (A) 68 %; Platelet Count 232 k/uL (150-450); RBC 4.22 m/uL (3.80-5.40); WBC 8.4 k/uL (3.8-10.6)
[2020-04-19 12:54] LABS: ALT 49 U/L (4-34); AST 86 U/L (14-36); African American GFR (CKD) >90 (>60 ml/min/1.73 sqM); Albumin 2.8 g/dL (3.5-5.0); Alkaline Phosphatase 61 U/L (38-126); Anion Gap 5 mmol/L; Blood Urea Nitrogen 15 mg/dL (7-17); Calcium 7.8 mg/dL (8.4-10.2); Carbon Dioxide 27 mmol/L (22-30); Chloride 104 mmol/L (98-107); Glucose 83 mg/dL (74-99); Non-African American GFR(CKD) >90 (>60 ml/min/1.73 sqM); Potassium 2.9 mmol/L (3.5-5.1); Sodium 136 mmol/L (137-145); Total Bilirubin 0.6 mg/dL (0.2-1.3); Total Protein 5.5 g/dL (6.3-8.2)
[2020-04-19] MEDS ORDERED: POTASSIUM CHLORIDE ER 20 MEQ TAB.ER PO STA (13:47)
--- NOTE | 2020-04-19 13:58 | P.DS ---
Providers Date of admission: 04/15/20 15:17 Expected date of discharge: 04/19/20 Attending physician: Giovana Hopkins DO Consults: 04/15/20 17:23 Consult Physician Routine Consulting Provider: Bethanie Sorensen Consult Reason/Comments: covid Do you want consulting provider notified?: Yes 04/17/20 12:59 Consult Physician Routine Consulting Provider: Diane Ross Consult Reason/Comments: COVID, hypoxia, worsening CXR Do you want consulting provider notified?: Yes Primary care physician: [facility] Course: Admitting diagnoses: Suspected ileus with no evidence of small bowel obstruction on abdominal x-ray Atypical pneumonia COVID-19 positive Discharge diagnoses Suspected ileus/enteritis with no evidence of small bowel obstruction on abdominal x-ray. Atypical pneumonia COVID-19 positive Hypertension Hypothyroid Patient seen and examined at bedside. Patient is no longer needing oxygen to help her breathe. Patient will like to go home today. Patient denies chest pain, shortness of breath, nausea, vomiting, fever, or chills. This is a 70-year-old female with past medical history noted below who was diagnosed with COVID-19 2 weeks ago at an outside urgent care and was doing fairly well up until couple of days ago when she started having nausea and vomiting and presented to our emergency room for further evaluation. Initial x-ray completed on 04/15/2020 showed patchy peripheral infiltrates Repeat x-ray on 04/19/2020 showed improved aeration Abdominal x-rays done on 04/15/2020 was possible for regional ileus or enteritis Infectious disease as well as pulmonary were consulted to manage the patient. Patient was placed on steroids antibiotics and IV fluids. Patient slowly improved. Vitals temperature 99.0 heart rate 68 respiratory 20 blood pressure 147/87 oxygen saturation 93% on room air General: , [no distress], [appears at stated age] Derm: [warm], [dry] Head: [atraumatic], [normocephalic], [symmetric] Eyes: [EOMI], [no lid lag], [anicteric sclera] Mouth: [no lip lesion], [mucus membranes moist] Cardiovascular: [S1S2 reg], [no murmur], [positive posterior tibial pulse bilateral], Lungs: [CTA bilateral], [no rhonchi, no rales] , [no accessory muscle use] Abdominal: [soft], [ nontender to palpation], [no guarding], [no appreciable organomegaly] Ext: [no gross muscle atrophy], [no edema], [no contractures] Neuro: [ CN II-XI grossly intact], [no focal neuro deficits] Psych: [Alert], [oriented], [appropriate affect] Diet cardiac Condition fair Erwin as tolerated Follow-up with PCP within one week Patient is to self quarantine for 2 weeks Patient Condition at Discharge: Fair Plan - Discharge Summary Discharge Rx Participant: Yes New Discharge Prescriptions: New Dexamethasone Oral [Decadron Oral] 6 mg PO Q24HR #10 vial Levofloxacin [Levaquin] 750 mg PO DAILY@1300 7 Days #7 tab Zinc Sulfate [Orazinc] 220 mg PO DAILY 30 Days #30 cap Albuterol Inhaler [Ventolin Hfa Inhaler] 2 puff INHALATION RT-QID PRN 30 Days #1 puff PRN Reason: Shortness Of Breath Or Wheezing Continue traZODone HCL 50 - 100 mg PO HS PRN PRN Reason: Insomnia Tolterodine ER [Detrol LA] 4 mg PO DAILY Levothyroxine Sodium [Synthroid] 125 mg PO QAM diphenhydrAMINE [Benadryl] 50 mg PO Q6H PRN PRN Reason: ITCHING OR ALLERGIES NIFEdipine [NIFEdipine ER] 30 mg PO DAILY Famotidine 20 mg PO BID Cetirizine HCl 10 mg PO BID Venlafaxine HCl [Effexor XR] 150 mg PO DAILY Montelukast Sodium [Singulair] 10 mg PO HS EPINEPHrine (Auto Inject) [Epipen] 0.3 mg IM ONCE PRN PRN Reason: Anaphylaxis Carvedilol [Coreg] 6.25 mg PO BID Discontinued methylPREDNISolone Dose Pack [Medrol Dose Pack] See Taper PO DAILY Discharge Medication List Cetirizine HCl 10 mg PO BID 04/15/20 [History] Famotidine 20 mg PO BID 04/15/20 [History] Levothyroxine Sodium [Synthroid] 125 mg PO QAM 04/15/20 [History] NIFEdipine [NIFEdipine ER] 30 mg PO DAILY 04/15/20 [History] Tolterodine ER [Detrol LA] 4 mg PO DAILY 04/15/20 [History] Venlafaxine HCl [Effexor XR] 150 mg PO DAILY 04/15/20 [History] diphenhydrAMINE [Benadryl] 50 mg PO Q6H PRN 04/15/20 [History] traZODone HCL 50 - 100 mg PO HS PRN 04/15/20 [History] Carvedilol [Coreg] 6.25 mg PO BID 04/16/20 [History] EPINEPHrine (Auto Inject) [Epipen] 0.3 mg IM ONCE PRN 04/16/20 [History] Montelukast Sodium [Singulair] 10 mg PO HS 04/16/20 [History] Albuterol Inhaler [Ventolin Hfa Inhaler] 2 puff INHALATION RT-QID PRN 30 Days #1 puff 04/19/20 [Rx] Dexamethasone Oral [Decadron Oral] 6 mg PO Q24HR #10 vial 04/19/20 [Rx] Levofloxacin [Levaquin] 750 mg PO DAILY@1300 7 Days #7 tab 04/19/20 [Rx] Zinc Sulfate [Orazinc] 220 mg PO DAILY 30 Days #30 cap 04/19/20 [Rx] Follow up Appointment(s)/Referral(s): Leonor Garg MD [Primary Care Provider] - 04/25/20 9:30 am (This will be a virtual visit. Office will be calling you with instructions for online visit. Thank you.) Activity/Diet/Wound Care/Special Instructions: PATIENT IS TO SELF QUARANTINE FOR 2 WEEKS Discharge Disposition: HOME SELF-CARE
--- NOTE | 2020-04-19 17:47 | P.PN ---
Progress Note - Text Progress Note Date: 04/19/20 REASON FOR FOLLOWUP: Pneumonia. INTERVAL HISTORY: Patient remains to be afebrile. The patient overall is feeling much better. The patient is breathing comfortably. The patient denies having any chest pain. The patient cough has decreased intensity and is dry in nature no nausea no vomiting no abdominal pain no diarrhea PHYSICAL EXAMINATION: Blood pressure 120/70 with a pulse of 72, temperature 97.3. She is 94% on 1 L nasal cannula. General description is an elderly female, up in the chair in no distress. RESPIRATORY SYSTEM: Unlabored breathing, Rest of exam was deferred because of lack of PPE LABS: Reviewed DIAGNOSTIC IMPRESSION AND PLAN: 1. Patient admitted to hospital with fever. This patient has been diagnosed with acute COVID-19 pneumonia about 2 weeks ago. The patient seemed to have shown overall clinical improvement on current therapy, with the plan to finish therapy with oral Levaquin 750 mg p.o. daily for 7 days in addition to zinc and dexamethasone..
[2020-04-20] MEDS ORDERED: DEXAMETHASONE ORAL 10 MG/ML (10 ML MDV) PO SCH (09:00)
== END 2020-04-19 15:06 | disposition home or self-care (01) | DRG 177 ==
LOC: EC 12:19 → 4SSUR 15:17
PROVIDERS: ADMIT Internal Medicine; ATTEND Internal Medicine
DX: U07.1 COVID-19 (principal); J12.89 Other viral pneumonia; J15.9 Unspecified bacterial pneumonia; J96.01 Acute respiratory failure with hypoxia; K56.7 Ileus, unspecified; E03.9 Hypothyroidism, unspecified; D72.810 Lymphocytopenia; R00.0 Tachycardia, unspecified; K52.9 Noninfective gastroenteritis and colitis, unspecified; Z79.899 Other long term (current) drug therapy; Z79.890 Hormone replacement therapy; Z88.0 Allergy status to penicillin; Z88.8 Allergy status to other drugs, medicaments and biological substances; Z91.018 Allergy to other foods; I10 Essential (primary) hypertension; J98.01 Acute bronchospasm
CPT/HCPCS: 36415; 71045; 71046; 74018; 80048; 80053; 83605; 83615; 83690; 83735; 84145; 85025; 85379; 86140; 87040; 87449; 93005; 94640; 96361; 96365; 96375; 99285